=== PATIENT | female | born 1960 | race Caucasian/White ===

== ENCOUNTER 2017-01-12 18:01 | Emergency (ER) | payer BC ==
[~2017-01-12] VITALS: Ht 165.1 cm; Wt 86.2 kg
[2017-01-12 18:33] VITALS: BP 130/67
[2017-01-12] MEDS ORDERED: KETOROLAC TROMETH 60MG/2ML VIAL IM ONE (21:45)
[2017-01-12 21:58] LABS: Urine Bilirubin Negative (Negative); Urine Blood Negative /uL (Negative); Urine Color Yellow (Yellow); Urine Glucose Normal (Normal); Urine Mucus FEW (None Seen); Urine Nitrite Negative (Negative); Urine RBC <1 /hpf (0 - 4); Urine Urobilinogen Normal (Negative)
[2017-01-12 22:00] LABS: Urine Ketone 1+ (Negative)
[2017-01-12] MEDS ORDERED: HYDROcodone-ACET 5/325MG TAB PO ONE (23:15)
== END 2017-01-12 23:25 | disposition home or self-care (01) ==
LOC: ER 18:07
DX: N39.0 Urinary tract infection, site not specified (principal); M79.1 Myalgia
CPT/HCPCS: 74176; 81001; 96372; 99285; J1885

== ENCOUNTER 2021-12-05 09:01 | Emergency (ER) | payer BC ==
[~2021-12-05] VITALS: Ht 165.1 cm; Wt 74.8 kg
[2021-12-05 09:06] VITALS: BP 123/70
[2021-12-05] MEDS ORDERED: IBUP600T27 PO (11:02)
[2021-12-05] MEDS ORDERED: METH500T22 PO (11:02)
== END 2021-12-05 11:11 | disposition home or self-care (01) ==
LOC: ER 09:01
DX: S29.011A Strain of muscle and tendon of front wall of thorax, initial encounter (principal); S00.83XA Contusion of other part of head, initial encounter; M17.12 Unilateral primary osteoarthritis, left knee; W19.XXXA Unspecified fall, initial encounter; Y93.89 Activity, other specified; Y92.89 Other specified places as the place of occurrence of the external cause; Y99.8 Other external cause status
CPT/HCPCS: 70110; 71101; 73562